=== PATIENT | male | born 1985 | race Caucasian/White ===

== ENCOUNTER 2022-04-01 08:19 | Emergency (ER) | payer BC ==
[2022-04-01] MEDS ORDERED: Iopamidol 755 MG/ML 500 ML Multipack Bottle IVPUSH STA (09:31)
== END 2022-04-01 11:35 | disposition home or self-care (01) ==
LOC: MW.ED 08:19
DX: S02.602B Fracture of unspecified part of body of left mandible, initial encounter for open fracture (principal); S34.6XXA Injury of peripheral nerve(s) at abdomen, lower back and pelvis level, initial encounter; K11.8 Other diseases of salivary glands; Z86.16 Personal history of COVID-19; V86.35XA Unspecified occupant of 3- or 4- wheeled all-terrain vehicle (ATV) injured in traffic accident, initial encounter; Y92.410 Unspecified street and highway as the place of occurrence of the external cause
CPT/HCPCS: 70450; 70486; 70491; 72125; 99284; Q9967; 99285